=== PATIENT | female | born 1975 | race Caucasian/White ===

== ENCOUNTER 2025-03-09 08:09 | Inpatient (IN) | payer OTHER ==
[~2025-03-09] VITALS: Ht 162.6 cm; Wt 59.0 kg
[2025-03-09] MEDS ORDERED: Ketorolac Tromethamine 15mg Vial IV ONE (09:05)
[2025-03-09 09:18] LABS: BASOPHILS ABSOLUTE AUTO 0.06 K/mm3 (0.00-0.23); BASOPHILS PERCENT AUTO 0 % (0-2); EOSINOPHILS ABSOLUTE AUTO 0.01 K/mm3 (0.00-0.68); EOSINOPHILS PERCENT AUTO 0 % (0-6); Hematocrit 37.5 % (33.0-51.0); Hemoglobin 12.7 g/dL (11.5-16.0); IMMATURE GRAN ABSOLUTE AUTO 0.08 K/mm3 (0.00-0.10); IMMATURE GRAN PERCENT AUTO 1 % (0-1); LYMPHOCYTES ABSOLUTE AUTO 1.00 K/mm3 (0.84-5.20); LYMPHOCYTES PERCENT AUTO 6 % (21-46); MONOCYTES ABSOLUTE AUTO 0.72 K/mm3 (0.16-1.47); MONOCYTES PERCENT AUTO 5 % (4-13); Mean Corpuscular HGB Conc 33.9 g/dL (31.5-36.5); Mean Corpuscular Volume 94 fL (80-100); NEUTROPHILS ABSOLUTE AUTO 13.95 K/mm3 (1.96-9.15); NEUTROPHILS PERCENT AUTO 88 % (41-73); NRBC ABSOLUTE 0.00 K/mm3 (0.00-0.02); NRBC Auto 0.0 /100 WBC (0.0-0.2); Platelet Count 254 K/mm3 (150-400); RDW Coefficient Variation 12.0 % (11.7-14.2); RDW Standard Deviation 42.0 fL (35.1-46.3)
[2025-03-09 09:41] LABS: Alanine Aminotransfer (ALT/SGP 20.0 U/L (12-78); Albumin, Blood 3.5 g/dL (3.4-5.0); Albumin/Globulin Ratio 0.9 (0.8-1.8); Anion Gap 6.0 mmol/L (3-11); Aspartate Aminotrans (AST/SGOT 10.0 U/L (12-37); Bilirubin, Total 0.3 mg/dL (0.1-1.0); Blood Urea Nitrogen 12.0 mg/dL (8-24); CO2, Blood 25.0 mmol/L (21-32); Calcium, Blood 8.8 mg/dL (8.5-10.1); Chloride, Blood 109.0 mmol/L (98-108); Creatinine, Blood 0.71 mg/dL (0.40-1.00); Globulin, Blood 3.7 g/dL (2.2-4.0); Glucose, Blood 107.0 mg/dL (70-99); Potassium, Blood 3.9 mmol/L (3.5-5.5); Sodium, Blood 136.0 mmol/L (136-145); Total Protein, Blood 7.2 g/dL (6.4-8.2)
[2025-03-09] MEDS ORDERED: Piperacillin/Tazobactam Sod 4.5 GM in NS 100 ML IV ONE (10:35)
[2025-03-09 11:04] LABS: Source, Urine Clean Catch
[2025-03-09 11:23] LABS: Bilirubin, Urine Neg (Neg); Glucose Qualitative, Urine Neg (Neg); Ketones, Urine 2+ (Neg); Leukocyte Esterase, Urine Neg (Neg); Protein, Urine Neg (Neg); Specific Gravity, Urine 1.010 (1.003-1.022); Urobilinogen, Urine NORM (Normal)
[2025-03-09 12:00] LABS: Color, Urine Pale Yellow (P-Yellow)
[2025-03-09 12:01] LABS: White Blood Cells, Urine 0-2 /hpf (0-5)
[2025-03-09] MEDS ORDERED: FentaNYL Citrate 50 MCG/ML 2 ML Injection IV PRN ×2 (14:10→22:35)
[2025-03-09] MEDS ORDERED: FLU VACC TS2025-26(6MOS UP)/PF 45 MCG/0.5 ML SYRINGE IM SCH (14:10)
[2025-03-09] MEDS ORDERED: VITAMIN B12500 MCG PO (14:13)
[2025-03-09] MEDS ORDERED: VITAMIN D5000 UNIT PO (14:13)
[2025-03-09] MEDS ORDERED: DIGESTIVE WELL1 EACH PO (14:14)
[2025-03-09] MEDS ORDERED: Ondansetron HCl 2 MG / ML 2ML Vial IV PRN (14:15)
[2025-03-09] MEDS ORDERED: Acerola C500 MG PO (14:16)
[2025-03-09] MEDS ORDERED: Ketorolac Tromethamine 15mg Vial IV PRN (14:20)
--- NOTE | 2025-03-09 16:11 | NUR ---
RM 303 PT REPORT RECEIVD FROM ER. PT ARRIVED VIA W/C ACCOMPANIED BY MICA LAYER. PT TRANSFERED SELF TO BED.
[2025-03-09] MEDS ORDERED: NS 250 ML IV PRN (16:15)
[2025-03-09 16:17] VITALS: BP 108/79
[2025-03-09] MEDS ORDERED: Piperacillin/Tazobactam Sod 4.5 GM in NS 100 ML IV SCH (18:00)
--- NOTE | 2025-03-09 18:10 | NUR ---
NOTE PT AWKE AND ALERT. MEDCIATED WITH TORDOL X1 FOR LABIAL PAIN. DR MARTIN MADE AWARE OF MRI BEING DELAYED UNTIL TOMORROW. PT IS OK WITH DELAY. VSS. VOIDING. PT AMBULATING IN ROOM. RA H/L.
[2025-03-09 19:51] VITALS: BP 118/56
[2025-03-09] MEDS ORDERED: Lactobacil 2-S.Thermo-Bifido 1 1 Cap PO SCH (21:00)
[2025-03-09] MEDS ORDERED: NS 250 ML IV SCH (22:00)
[2025-03-10 04:24] VITALS: BP 107/59
[2025-03-10 04:42] LABS: BASOPHILS ABSOLUTE AUTO 0.06 K/mm3 (0.00-0.23); BASOPHILS PERCENT AUTO 0 % (0-2); EOSINOPHILS ABSOLUTE AUTO 0.03 K/mm3 (0.00-0.68); EOSINOPHILS PERCENT AUTO 0 % (0-6); Hematocrit 34.0 % (33.0-51.0); Hemoglobin 11.5 g/dL (11.5-16.0); IMMATURE GRAN ABSOLUTE AUTO 0.05 K/mm3 (0.00-0.10); IMMATURE GRAN PERCENT AUTO 0 % (0-1); LYMPHOCYTES ABSOLUTE AUTO 1.35 K/mm3 (0.84-5.20); LYMPHOCYTES PERCENT AUTO 9 % (21-46); MONOCYTES ABSOLUTE AUTO 0.74 K/mm3 (0.16-1.47); MONOCYTES PERCENT AUTO 5 % (4-13); Mean Corpuscular HGB Conc 33.8 g/dL (31.5-36.5); Mean Corpuscular Volume 94 fL (80-100); NEUTROPHILS ABSOLUTE AUTO 12.18 K/mm3 (1.96-9.15); NEUTROPHILS PERCENT AUTO 85 % (41-73); NRBC ABSOLUTE 0.00 K/mm3 (0.00-0.02); NRBC Auto 0.0 /100 WBC (0.0-0.2); Platelet Count 237 K/mm3 (150-400); RDW Coefficient Variation 12.1 % (11.7-14.2); RDW Standard Deviation 42.0 fL (35.1-46.3)
--- NOTE | 2025-03-10 04:42 | NUR ---
BILLET ASSEMBLER SUMMARY W/HOSPITALIST CONTACT PT A/OX4. PLEASANT. ABLE TO MAKE NEEDS KNOWN. AT START OF SHIFT PT GETTING TORADOL Q6 AND FENTANYL 25MCG Q4. PT REPORTING 10/10 PAIN--WITH GRIMACING/MOANING. 10 ON FACE SCALE. PT IS UNABLE TO TAKE MANY NARCOTIC PAIN MEDS DUE TO SIDE EFFECT OF EXTREME HALLUCINATION. PT HAD SOME RELIEF WITH FENTANYL WITH NO SIDE EFFECTS BUT ONLY LASTING 2-3 HOURS AT MOST. PLACED CALL TO HOSPITALIST. SPOKE TO TRAN. NEW ORDER FOR 25-50MCG OF FENTANYL Q2 PRN. PT GIVEN 50MCG--SHE REPORTED GOOD PAIN RELIEF BUT BECAME NAUSEATED. OFFERED TO GIVE ZOFRAN--PT IS UNABLE TO TAKE ZOFRAN ALSO. PT HAD BRENDA CHEWS TO RELIEVE NAUSEA WITH GOOD EFFECT. SUBSEQUENT DOSES OF FENTANYL WERE 35.5MCG WITH GOOD EFFECT. PT REPORTING OVERALL IMPROVED PAIN CONTROL. NO CHANGE IN SIZE TO LABIAL MASS. NOT DRAINING. PT TO HAVE MRI. CALL LIGHT ACCESSIBLE. REGULAR INTERVAL ROUNDING AND CARE ONGOING.
[2025-03-10 05:04] LABS: Anion Gap 10.0 mmol/L (3-11); Blood Urea Nitrogen 14.0 mg/dL (8-24); CO2, Blood 22.0 mmol/L (21-32); Calcium, Blood 8.2 mg/dL (8.5-10.1); Chloride, Blood 108.0 mmol/L (98-108); Creatinine, Blood 0.65 mg/dL (0.40-1.00); Glucose, Blood 120.0 mg/dL (70-99); Potassium, Blood 3.8 mmol/L (3.5-5.5); Sodium, Blood 136.0 mmol/L (136-145)
--- NOTE | 2025-03-10 07:37 | NUR ---
NURSE NOTE--PAIN CONTROL/CONCERN WHEN LAB CAME TO PT BEDSIDE, THIS RN ASSESSED THE PT'S PAIN UPON WAKING. PT REPORTED PAIN INCREASING AND REQUESTING PAIN MED TO TX. ADVISED PT, THIS RN WOULD RETURN W/MED. PULLED MED AND WASTED W/RN DM. RETURNED TO ROOM LAB WAS FINISHING. THE ASSIGNED SYSTEM DESIGNER CAME TO BEDSIDE FOR VITALS WITH THIS RN. SCANNED PT ID AND EDUCATED PT ON MED TO BE GIVEN AND THE AMOUNT. PT TOOK OF ROBE IN ANTICIPATION OF HEAT CAUSED BY FENTANYL MED. PT GIVEN 37.5MCG OF FENTANYL. UPON REASSESSMENT PT REPORTED IMPROVED PAIN OF 4/10. APROX 30-45 MINUTES LATER THE SYSTEM DESIGNER SAID PT WAS WANTING TO KNOW WHEN THIS RN WAS COMING TO GIVE PAIN MEDS. WHEN AT BEDSIDE THE PT SAID SHE DID NOT RECALL GETTING THE FENTANYL. MED PASS DETAILS WERE REVIEWED WITH THE PATIENT. THE PATIENT VOICED THAT SHE MIGHT BE CONFUSED/FORGETTING THINGS BECAUSE OF EFFECTS NARCOTIC MEDS HAVE PREVIOUSLY HAD. PT WAS REPORTING INCREASING PAIN. PROVIDED EDUCATION AND ADMINISTERED TORODOL WITH GOOD EFFECT. PT TOLD GOING FORWARD, PAIN MEDICATIONS GIVEN WOULD BE WRITTEN ON THE WHITE BOARD WITH TIME GIVEN AND NEXT AVAILABLE TIME. AT APROX 0630 PT WAS REQUESTING ANOTHER DOSE OF FENTANYL SINCE IT HAD BEEN TWO HOURS. PT SAID PAIN WAS 2-3/10. EDUCATED PT FENTANYL WOULD BE ADMINISTERED FOR MODERATE TO SEVERE PAIN. PT AGREED PAIN WAS LESS THAN MODERATE AT THAT TIME. SYSTEM DESIGNER REPORTED THAT PT TOLD HER SHE TOOK "A LOT OF BENADRYL AND PERCOCET WHEN SHE WAS YOUNGER BECAUSE IT MADE HER HALLUCINATE" HOWEVER, THE PATIENT TOLD THIS RN SHE IS ALLERGIC TO THOSE MEDICATIONS. CHARGE NURSE WAS INFORMED OF PT'S STATEMENTS AND CONFUSION REGARDING MED PASS. PT ALSO HAD AN EPISODE OF NAUSEA WITH VOMITTING. PT DECLINED ZOFRAN DUE TO EFFECTS--PT REPORTS MAKES NAUSEA WORSE. PT HAS BRENDA CHEWS AT BEDSIDE. PT DECLINED ANY OTHER ANTI EMETIC INTERVENTION.
[2025-03-10 07:48] VITALS: BP 112/57
[2025-03-10] MEDS ORDERED: Enoxaparin 40 MG/0.4 ML SYR SC SCH (09:00)
[2025-03-10] MEDS ORDERED: D5W-LR 1,000 ML IV SCH (15:15)
--- NOTE | 2025-03-10 17:45 | NUR ---
SHIFT SUMMARY: A&OX4 THROUGHOUT SHIFT. PLEASANT AND COOPERATIVE WITH CARE. PLAN TO POTENTIALLY HAVE SURGERY TOMORROW. NPO STATUS AT THIS TIME. PT IS AMBULATORY INDEPENDENTLY IN ROOM. MEDICATED FOR PAIN PER EMAR. PT REPORTS PAIN MEDICATION REQUIREMENTS HAVE DECREASED. NO ACUTE EVENTS THIS SHIFT. LYING IN BED AT THIS TIME. BREATHING EQUAL AND NONLABORED. CALL LT WITHIN REACH.
[2025-03-10 20:19] VITALS: BP 121/67
[2025-03-11] VITALS (10 sets, daily range): BP systolic 107–123; BP diastolic 47–76
--- NOTE | 2025-03-11 04:39 | NUR ---
STITCHER FEEDER SUMMARY PT A&OX4, VSS. ABLE TO COMMUNICATE NEEDS APPROPRIATELY. PT HAS BEEN ASLEEP FOR MOST OF THE NIGHT. CHEST RISE/RESPIRATIONS NOTED. TORADOL ADMIN X 2 THIS SHIFT FOR GROIN PAIN W/ GOOD EFFECT. PT CONT TO RECEIVE ZOSYN Q6 PER EMAR. HAS BEEN NPO SINCE MIDNIGHT IN PREPARATION FOR I&D THIS MORNING. BED RAILS UP X 2, BED IN LOWEST POSITION, BED WHEELS LOCKED, PERSONAL BELONGINGS AND CALL LIGHT WITHIN REACH FOR SAFETY.
[2025-03-11 05:31] LABS: BASOPHILS ABSOLUTE AUTO 0.05 K/mm3 (0.00-0.23); BASOPHILS PERCENT AUTO 1 % (0-2); EOSINOPHILS ABSOLUTE AUTO 0.05 K/mm3 (0.00-0.68); EOSINOPHILS PERCENT AUTO 1 % (0-6); Hematocrit 30.4 % (33.0-51.0); Hemoglobin 10.3 g/dL (11.5-16.0); IMMATURE GRAN ABSOLUTE AUTO 0.03 K/mm3 (0.00-0.10); IMMATURE GRAN PERCENT AUTO 0 % (0-1); LYMPHOCYTES ABSOLUTE AUTO 2.10 K/mm3 (0.84-5.20); LYMPHOCYTES PERCENT AUTO 19 % (21-46); MONOCYTES ABSOLUTE AUTO 0.82 K/mm3 (0.16-1.47); MONOCYTES PERCENT AUTO 8 % (4-13); Mean Corpuscular HGB Conc 33.9 g/dL (31.5-36.5); Mean Corpuscular Volume 94 fL (80-100); NEUTROPHILS ABSOLUTE AUTO 7.92 K/mm3 (1.96-9.15); NEUTROPHILS PERCENT AUTO 72 % (41-73); NRBC ABSOLUTE 0.00 K/mm3 (0.00-0.02); NRBC Auto 0.0 /100 WBC (0.0-0.2); Platelet Count 229 K/mm3 (150-400); RDW Coefficient Variation 12.0 % (11.7-14.2); RDW Standard Deviation 41.5 fL (35.1-46.3)
[2025-03-11 05:48] LABS: Anion Gap 7.0 mmol/L (3-11); Blood Urea Nitrogen 10.0 mg/dL (8-24); CO2, Blood 25.0 mmol/L (21-32); Calcium, Blood 7.9 mg/dL (8.5-10.1); Chloride, Blood 109.0 mmol/L (98-108); Creatinine, Blood 0.67 mg/dL (0.40-1.00); Glucose, Blood 110.0 mg/dL (70-99); Potassium, Blood 3.2 mmol/L (3.5-5.5); Sodium, Blood 138.0 mmol/L (136-145)
[2025-03-11] MEDS ORDERED: Bupivacaine 0.5% W/EPI 1:200000 SDV 30 ML Vial ONE (07:36)
[2025-03-11] MEDS ORDERED: FentaNYL Citrate 50 MCG/ML 2 ML Injection ONE ×2 (08:19→09:20)
[2025-03-11] MEDS ORDERED: Ketorolac Tromethamine 30mg Vial ONE (08:30)
[2025-03-11] MEDS ORDERED: Albuterol 2.5 MG/3 ML VIAL INH PRN (08:45)
[2025-03-11] MEDS ORDERED: HYDROmorphone HCl/Pf 1MG SYR IV PRN (08:45)
[2025-03-11] MEDS ORDERED: FentaNYL Citrate 50 MCG/ML 2 ML Injection IV PRN ×4 (08:45→09:10)
[2025-03-11] MEDS ORDERED: Sugammadex Sodium 200 MG/2ML SDV (100 MG/ML) ONE (08:48)
[2025-03-11] MEDS ORDERED: HYDROmorphone HCl/Pf 1MG SYR ONE (09:04)
[2025-03-11] MEDS ORDERED: Naloxone HCl 0.4MG / ML 1ML Vial IV PRN (09:10)
[2025-03-11] MEDS ORDERED: Ketorolac Tromethamine 30mg Vial IV PRN (09:30)
[2025-03-11] MEDS ORDERED: VISBIOME 112.51 EACH PO (15:18)
[2025-03-11] MEDS ORDERED: Diflucan100 MG PO (15:20)
--- NOTE | 2025-03-11 17:42 | NUR ---
DISCHARGE NOTE: A&OX4 PRIOR TO D/C. INSTRUCTIONS AND EDUCATION PROVIDED. BELONGINGS GATHERED AND SENT WITH PT. IV REMOVED. MEDICATIONS FAXED TO PHARMACY. SPOUSE ESCORTED PT OUT VIA W/C.
== END 2025-03-11 16:20 | disposition home or self-care (01) | DRG 759 ==
LOC: ER 08:09 → MEDS 08:10
PROVIDERS: Physician Assistant; ADMIT Internal Medicine
DX: N76.4 Abscess of vulva (principal); N36.1 Urethral diverticulum; Z88.1 Allergy status to other antibiotic agents; Z88.5 Allergy status to narcotic agent; Z90.710 Acquired absence of both cervix and uterus; Z98.51 Tubal ligation status; Z79.899 Other long term (current) drug therapy
CPT/HCPCS: 36415; 72193; 72197; 80048; 80053; 81001; 85025; 96365-59; 96366; 96372; 96375; 96376; 99285-25; A9270; A9579; G0378; J1171; J1650; J1885; J2543; J2704; J3010; J3480; J7050; J7121; Q9967